=== PATIENT | male | born 1950 | race Two or more races ===

== ENCOUNTER 2023-03-18 01:09 | Emergency (ER) | payer OTHER ==
[2023-03-18 01:19] VITALS: BMI 28.1
[2023-03-18 01:51] LABS: BASO % 0.6 % (0-2.0); EOS % 1.1 % (0-4.5); HEMATOCRIT 37.8 % (35.4-49); HEMOGLOBIN 13.3 GM/dL (11.7-16.9); LYMPH % 24.7 % (8-40); MCH 31.6 pg (25.7-33.7); MCHC 35.2 g/dl (32.0-35.9); MEAN CELL VOLUME 89.6 fl (80-96); MEAN PLT VOLUME 8.8 fl (7.5-11.1); MONO % 11.3 % (3.8-10.2); NEUT % 62.3 % (42.8-82.8); PLATELET COUNT 169 10^3/uL (134-434); RBC 4.22 M/mm3 (4.00-5.60); RDW 13.5 % (11.9-15.9); WHITE BLOOD COUNT 7.9 K/mm3 (4.0-10.0)
[2023-03-18 02:13] LABS: ALBUMIN 3.7 g/dl (3.4-5.0); CALCIUM 9.2 mg/dL (8.5-10.1)
[2023-03-18 02:14] LABS: BLOOD UREA NITROGEN 11.3 mg/dL (7-18)
[2023-03-18 02:17] LABS: CREATININE 1.3 mg/dL (0.55-1.3)
[2023-03-18 02:18] LABS: BILIRUBIN,TOTAL 0.4 mg/dL (0.2-1); TOT PROT 7.3 g/dl (6.4-8.2)
[2023-03-18 02:22] LABS: N-TERMINAL BNP 17.5 pg/ml (5-125)
[2023-03-18 06:36] VITALS: BP 158/80; PULSE 76; RESP 18; TEMP 98.1
== END 2023-03-18 06:46 | disposition home or self-care (01) ==
LOC: JER 01:09
DX: R00.2 Palpitations (principal)
CPT/HCPCS: 36415; 71045-TC-FY; 80053; 83880; 84439; 84443; 84484; 85025; 93005; 93010; 99285-25

== ENCOUNTER 2023-05-07 06:46 | Emergency (ER) | payer OTHER ==
[2023-05-07 06:55] VITALS: TEMP 98.1; BMI 27.6
[2023-05-07] MEDS ORDERED: LOSARTAN POTASSIUM 50 MG TABLET PO ONE (07:36)
[2023-05-07] MEDS ORDERED: HYDROCHLOROTHIAZIDE 25 MG TABLET (FP) PO ONE (07:38)
[2023-05-07] MEDS ORDERED: ACETAMINOPHEN 325 MG TABLET (FP) PO ONE (07:39)
[2023-05-07 07:54] LABS: BASO % 0.9 % (0-2.0); EOS % 1.3 % (0-4.5); HEMATOCRIT 40.8 % (35.4-49); HEMOGLOBIN 13.6 GM/dL (11.7-16.9); LYMPH % 20.8 % (8-40); MCH 30.2 pg (25.7-33.7); MCHC 33.3 g/dl (32.0-35.9); MEAN CELL VOLUME 90.8 fl (80-96); MEAN PLT VOLUME 8.6 fl (7.5-11.1); MONO % 11.1 % (3.8-10.2); NEUT % 65.9 % (42.8-82.8); PLATELET COUNT 181 10^3/uL (134-434); RBC 4.49 M/mm3 (4.00-5.60); RDW 13.3 % (11.9-15.9); WHITE BLOOD COUNT 9.4 K/mm3 (4.0-10.0)
[2023-05-07] MEDS ORDERED: LOSARTAN POTASSIUM 50 MG TABLET ONE (07:54)
[2023-05-07] MEDS ORDERED: HYDROCHLOROTHIAZIDE 25 MG TABLET (FP) ONE (07:54)
[2023-05-07] MEDS ORDERED: ACETAMINOPHEN 325 MG TABLET (FP) ONE (07:55)
[2023-05-07 08:20] LABS: POTASSIUM 3.8 mmol/L (3.5-5.1)
[2023-05-07 08:22] LABS: ALBUMIN 3.7 g/dl (3.4-5.0); BLOOD UREA NITROGEN 11.9 mg/dL (7-18); CALCIUM 9.4 mg/dL (8.5-10.1)
[2023-05-07 08:25] LABS: CREATININE 1.4 mg/dL (0.55-1.3)
[2023-05-07 08:27] LABS: BILIRUBIN,TOTAL 0.5 mg/dL (0.2-1); TOT PROT 7.3 g/dl (6.4-8.2)
[2023-05-07 10:41] VITALS: PULSE 80
[2023-05-07 11:38] VITALS: BP 173/81; RESP 18
== END 2023-05-07 11:41 | disposition home or self-care (01) ==
LOC: JER 06:46
DX: I16.0 Hypertensive urgency (principal); R42 Dizziness and giddiness; R51.9 Headache, unspecified; R53.1 Weakness
CPT/HCPCS: 36415; 70450-TC; 80053; 83735; 84484; 85025; 93005; 93010; 99285-25

== ENCOUNTER 2024-04-13 11:54 | Emergency (ER) | payer OTHER ==
[2024-04-13 12:02] VITALS: RESP 19; TEMP 98.5; BMI 29.2
[2024-04-13] MEDS ORDERED: IBUPROFEN 400 MG TABLET (FP) PO ONE (12:37)
[2024-04-13] MEDS ORDERED: ACETAMINOPHEN 500 MG TABLET (FP) ONE (12:38)
[2024-04-13] MEDS: IBUPROFEN 400 MG TABLET (FP) PO ONE (12:39)
[2024-04-13] MEDS: ACETAMINOPHEN 500 MG TABLET (FP) PO ONE (12:39)
[2024-04-13 14:34] VITALS: BP 146/75; PULSE 60
== END 2024-04-13 14:38 | disposition home or self-care (01) ==
LOC: JERFT 11:54
DX: M25.571 Pain in right ankle and joints of right foot (principal); W11.XXXA Fall on and from ladder, initial encounter; Y92.009 Unspecified place in unspecified non-institutional (private) residence as the place of occurrence of the external cause
CPT/HCPCS: 73610-TC-RT-FY; 99283-25

== ENCOUNTER 2025-07-21 17:00 | Emergency (ER) | payer OTHER ==
[2025-07-21 17:11] VITALS: BP 138/73; PULSE 72; RESP 18; TEMP 98.1; BMI 25.8
[2025-07-21 18:47] LABS: ABSOLUTE IMMATURE GRANULOCYTES 0.03 x10^3/uL (0.0-0.031); BASOPHILS # 0.04 x10^3/uL (0.01-0.08); EOSINOPHIL % 0.5 % (0.8-7.0); EOSINOPHILS # 0.05 x10^3/uL (0.04-0.54); MCHC 34.1 g/dl (32.3-36.5); MEAN CELL VOLUME 91.6 fl (79.0-92.2); MEAN PLT VOLUME 10.3 fl (9.4-12.4); MONOCYTE # 1.17 x10^3/uL (0.30-0.82); MONOCYTE % 11.7 % (5.3-12.2); RDW 12.6 % (12.2-16.6)
[2025-07-21 19:06] LABS: INR 1.29 (0.83-1.09); PROTHROMBIN TIME (PATIENT) 14.2 SEC (9.7-13.0)
[2025-07-21 19:09] LABS: ACTIVATED PTT 28.6 SECONDS (25.2-36.5)
[2025-07-21 19:19] LABS: GLUCOSE,RANDOM 90.0 mg/dL (74-106); TOT PROT 7.2 g/dl (6.4-8.2)
[2025-07-21 19:20] LABS: CO2 30.0 mmol/L (21-32)
[2025-07-21 19:22] LABS: ALK PHOS 74.0 U/L (40-150)
[2025-07-21 19:25] LABS: CREATININE 1.2 mg/dL (0.55-1.3); LDL CHOLESTEROL (ONLY SJRH) 39.0 mg/dL (5-100); SGOT/AST 21.0 U/L (5-34); SGPT/ALT 21.0 U/L (0-55)
[2025-07-21 21:28] LABS: HIV INTERPRETATION NEGATIVE (NEGATIVE)
[2025-07-21 21:30] LABS: HCV DIAGNOSTIC IN-HOUSE W/RFLX NON-REACTIVE (NONREACTIVE)
== END 2025-07-21 21:19 | disposition left against medical advice (07) ==
LOC: JER 17:00
DX: R42 Dizziness and giddiness (principal); H53.8 Other visual disturbances; R29.898 Other symptoms and signs involving the musculoskeletal system; R25.1 Tremor, unspecified; R07.9 Chest pain, unspecified; R06.02 Shortness of breath
CPT/HCPCS: 36415; 70450-TC; 70496-TC; 70498-TC; 80053; 80061; 82550; 82962; 83036; 84484; 85025; 85610; 85730; 86803; 86850; 86900; 86901; 87389; 93005; 93010; 99285-25